=== PATIENT | female | born 1975 | race Caucasian/White ===

== ENCOUNTER → 2019-07-15 | Outpatient (CLI) | payer OTHER ==
[~2019-07-15] MED LIST: AMBIEN; CHERATUSSIN DA480 ML; CIPROFLOXACIN500 M1; CLARITIN10 M2; CLONAZEPAM; ESSENTIAL DAIL1 EACH PO; FLEXERIL PO; IBUPROFEN 800800 MG PO; NAPROSYN375 MG PO; NEXIUM20 MG PO; NORCO 5-325 TA1 EACH PO; PERCOCET 5-3251 EACH PO; PROTONIX40 M2 PO; ROBAXIN500 MG PO; SYMBICORT160 MCG/4.; SYNTHROID25 MCG PO
[2019-07-15 14:31] LABS: ALBUMIN 4.1 g/dL (3.4-5.0); CALCIUM 9.5 mg/dL (8.5-10.1); CREATININE 0.8 mg/dL (0.6-1.0); POTASSIUM 3.9 mmol/L (3.5-5.1); TOTAL BILIRUBIN 0.2 mg/dL (<0.1-1.0); TOTAL PROTEIN 8.1 g/dL (6.4-8.2)
== END ==
LOC: MRI 13:59
DX: L93.0 Discoid lupus erythematosus (principal); R51 Headache